=== PATIENT | male | born 1990 ===

== ENCOUNTER 2019-08-13 21:25 | Inpatient (IN) ==
[2019-08-13] MEDS ORDERED: DEXTROSE 50% 25 GM/50 ML VIAL IV PRN ×2 (23:58)
[2019-08-13] MEDS ORDERED: MAGNESIUM SULF RIDER 2 GM in PREMIX 1 EACH IV PRN (23:58)
[2019-08-13] MEDS ORDERED: SODIUM PHOSPHATE INJ 26 MMOL in SODIUM CHLORIDE 0.9% 250 ML IV PRN (23:58)
[2019-08-13] MEDS ORDERED: MAGNESIUM SULF RIDER 4 GM in PREMIX 1 EACH IV PRN (23:58)
[2019-08-13] MEDS ORDERED: POTASSIUM CHLORIDE RIDER 10 MEQ in PREMIX 1 EACH IV PRN (23:58)
[2019-08-14] MEDS ORDERED: SODIUM CHLORIDE 0.9% 1,000 ML IV SCH ×2 (00:01→02:00)
[2019-08-14] MEDS ORDERED: SODIUM BICARB INJ 100 MEQ in STERILE WATER INJ 400 ML IV PRN (00:30)
[2019-08-14] MEDS ORDERED: INSULIN REGULAR DRIP 100 ML IV SCH (00:30)
[2019-08-14 01:00] LABS: Calcium 8.9 MG/DL (8.5-10.1); Osmolality,Calculated 291.9 MOS/KG (273-304)
[2019-08-14 02:37] LABS: Apearance,Urine CLEAR (Clear); Bilirubin,Urine Negative (Negative); Blood, Urine Negative (Negative); Glucose,Urine (UA) >=500 mg/dL (Negative); Ketones,Urine 80 mg/dL (Negative); Nitrite,Urine Negative (Negative); Protein,Urine Negative; RBC,Urine 2 /HPF (0-4); Squamous Epithelial Cell,Urine Occasional /HPF (0-10); Urine Color Straw (Yellow); Urine Urobilinogen < 2.0 EU/DL (0.2-1.0); WBC,Urine <1 /HPF (0-6)
[2019-08-14 05:32] LABS: Basophils # 0.1 10*3/uL (0.0-0.2); Basophils % 0.9 % (0.0-0.8); Eosinophils # 0.1 10*3/uL (0.0-0.87); Eosinophils % 0.7 % (0.00-10.9); Hematocrit 39.9 VOL% (42.0-52.0); Hemoglobin 13.6 GM/DL (14.0-18.0); Immature Granulocytes % 0.5 %; Immature Granulocytes Absolute 0.04 #; Lymphocytes # 2.1 10*3/uL (1.4-4.0); Lymphocytes % 24.7 % (21.2-54.2); Mean Corpuscular HGB Conc 34.1 GM/DL (32-36); Mean Corpuscular Volume 87.1 FL (87-102); Mean Platelet Volume 12.5 FL (9.6-12.0); Neutrophils % 65.2 % (38.7-73.9); Platelet Count 115 T/CUMM (130-400); Red Blood Count 4.58 MC/CUMM (3.8-5.5); Red Cell Distribution Width 12.4 % (9.3-17.3); White Blood Count 8.5 T/CUMM (4-12)
[2019-08-14 05:54] LABS: Calcium 8.9 MG/DL (8.5-10.1); Osmolality,Calculated 290.5 MOS/KG (273-304)
[2019-08-14] MEDS ORDERED: SODIUM CHLOR 0.45% KCL 20 MEQ 20 MEQ/1,000 ML BAG IV SCH (07:00)
[2019-08-14] MEDS ORDERED: GLUCAGON 1 MG VIAL IM PRN (08:06)
[2019-08-14] MEDS ORDERED: INSULIN REGULAR 100 UNIT/ML IV ONE (08:12)
[2019-08-14] MEDS ORDERED: INSULIN REGULAR DRIP 100 ML IV PRN (08:13)
[2019-08-14 08:14] LABS: Calcium 8.7 MG/DL (8.5-10.1); Osmolality,Calculated 287.4 MOS/KG (273-304)
[2019-08-14] MEDS ORDERED: INSULIN GLARGINE 100 UNIT/ML SUBCUT SCH (09:00)
[2019-08-14] MEDS: ENOXAPARIN 40 MG/0.4 ML SYRINGE SUBCUT SCH (09:04)
[2019-08-14] MEDS: CLOTRIMAZOLE 1% CREAM 15 GM TUBE TOP SCH ×2 (09:05→21:49)
[2019-08-14] MEDS: SODIUM CHLORIDE 0.45% 1,000 ML IV SCH ×3 (10:05→22:53)
[2019-08-14] MEDS: INSULIN GLARGINE 100 UNIT/ML SUBCUT SCH (10:08)
[2019-08-14] MEDS: INSULIN LISPRO 100 UNIT/ML SUBCUT SCH ×5 (11:29→21:56)
[2019-08-14] MEDS ORDERED: SODIUM CHLORIDE 0.45% 1,000 ML IV SCH (16:58)
[2019-08-15 03:06] LABS: Basophils # 0.1 10*3/uL (0.0-0.2); Basophils % 1.2 % (0.0-0.8); Eosinophils # 0.2 10*3/uL (0.0-0.87); Hematocrit 34.8 VOL% (42.0-52.0); Hemoglobin 11.8 GM/DL (14.0-18.0); Immature Granulocytes % 0.2 %; Immature Granulocytes Absolute 0.01 #; Lymphocytes # 2.4 10*3/uL (1.4-4.0); Mean Corpuscular HGB Conc 33.9 GM/DL (32-36); Mean Corpuscular Volume 87.4 FL (87-102); Mean Platelet Volume 13.6 FL (9.6-12.0); Monocytes % 6.1 % (1.7-12.7); Neutrophils % 48.5 % (38.7-73.9); Red Blood Count 3.98 MC/CUMM (3.8-5.5); Red Cell Distribution Width 12.5 % (9.3-17.3); White Blood Count 5.9 T/CUMM (4-12)
[2019-08-15 03:12] LABS: Platelet Count 67 T/CUMM (130-400)
[2019-08-15 03:20] LABS: Calcium 8.4 MG/DL (8.5-10.1); Osmolality,Calculated 273.2 MOS/KG (273-304)
[2019-08-15 03:49] LABS: Hypochromasia 1+; Platelet Estimate Decreased
[2019-08-15] MEDS: SODIUM CHLORIDE 0.45% 1,000 ML IV SCH (05:36)
[2019-08-15 07:35] VITALS: BP 115/67
[2019-08-15] MEDS: CLOTRIMAZOLE 1% CREAM 15 GM TUBE TOP SCH (08:25)
[2019-08-15] MEDS: ENOXAPARIN 40 MG/0.4 ML SYRINGE SUBCUT SCH (08:25)
[2019-08-15] MEDS: INSULIN GLARGINE 100 UNIT/ML SUBCUT SCH (08:25)
[2019-08-15] MEDS: INSULIN LISPRO 100 UNIT/ML SUBCUT SCH ×4 (08:25→11:29)
[2019-08-15] MEDS ORDERED: INSULIN GLARGINE 100 UNIT/ML SUBCUT ONE (10:00)
[2019-08-16] MEDS ORDERED: INSULIN GLARGINE 100 UNIT/ML SUBCUT SCH (09:00)
== END 2019-08-15 11:32 | disposition home or self-care (01) | DRG 638 ==
LOC: N.CC 23:16 → SUATTDRO 23:16 → N.2E 08-14 11:50
PROVIDERS: ADMIT Internal Medicine; ATTEND Hospitalist